=== PATIENT | female | born 2000 | race African-American/Black ===

== ENCOUNTER 2020-04-05 19:57 | Inpatient (IN) | payer OTHER, SELFPAY ==
[2020-04-05] VITALS (13 sets, daily range): BP systolic 115–149; BP diastolic 77–102; PULSE 83–113; TEMP 36.7; BMI 41.3
[2020-04-05 20:32] LABS: Basophils Percent Auto 0.2 % (0.2-1.2); Eosinophils Absolute Auto 0.1 K/mm3 (0-0.3); Eosinophils Percent Auto 0.6 % (0-4.4); Hematocrit 31.5 % (37.0-47.0); Hemoglobin 9.8 g/dL (12.0-15.0); Immature Granulocyte Absolute 0.14 K/mm3 (0.00-0.031); Immature Granulocyte Percent A 0.9 % (0-0.5); Lymphocytes Absolute Auto 2.32 K/mm3 (0.9-3.2); Lymphocytes Percent Auto 14.9 % (18.3-44.2); Mean Corpuscular HGB Conc 31.1 g/dl (32-36); Mean Corpuscular Hemoglobin 20.8 pg (26-34); Mean Corpuscular Volume 66.9 fl (80-100); Mean Platelet Volume 9.9 fl (7.4-10.4); Monocytes Absolute Auto 1.5 K/mm3 (0.1-0.6); Monocytes Percent Auto 9.7 % (2.6-8.5); Neutrophils Absolute Auto 11.4 K/mm3 (1.3-6.7); Neutrophils Percent Auto 73.7 % (45.5-73.1); Platelet Count Result 347 k/mm3 (150-375); Red Blood Count 4.71 M/mm3 (4.2-5.4); Red Cell Distribution Width 17.4 % (11.5-14.5); White Blood Count 15.5 K/mm3 (4.5-10.0)
[2020-04-05] MEDS: LACTATED RINGERS 1,000 ML 125 ML IV CONT (20:34)
[2020-04-05] MEDS: AMPICILLIN 2 GM/NS 100 ML 2 GM/100 ML BAG IVPB (20:34)
[2020-04-05] MEDS: DINOPROSTONE 10 MG VAG INSERT VAGINAL (20:42)
--- NOTE | 2020-04-05 20:53 | LDADM ---
This patient, Penelope Escalante, was admitted to Labor/Delivery/Recovery 109 on 04/05/20 at 19:57. Plans for labor, pain management and were discussed with patient. Patient/family oriented to hospital policies and general routines including ID bracelet, bed and alarms, visiting hours, pain management, procedures, bathroom and other care routines, personal items, smoking policy, room service/diet and guest tray routines, security routines, and visiting hours. Patient/Family are encouraged to report perceived risks to care and to ask questions if they do not understand what they are told or what they should do. See OBIX for further documentation.
[2020-04-06] VITALS (241 sets, daily range): BP systolic 104–171; BP diastolic 52–150; PULSE 63–183; TEMP 36.3–37.6; O2SAT 98–100
[2020-04-06] MEDS: AMPICILLIN 1 GM/NS 50 ML 1 GM/50 ML BAG IVPB ×6 (00:23→21:23)
[2020-04-06] MEDS: OXYTOCIN 30 UNITS/NS 500 ML 30 UNITS/500 ML BAG 6 UNITS IV CONT (06:32)
[2020-04-06] MEDS: LACTATED RINGERS 1,000 ML 125 ML IV CONT ×3 (09:25→20:22)
--- NOTE | 2020-04-06 09:58 | P.PNAN_ITS ---
Anes - Eval Pre Procedure Procedure: labor epidural Date/Time: 04/06/20 09:58 Preop Diagnosis: labor pain Pre Op Diagnosis: Induction of Labor Patient Data Age: 19 Gender: F Height: 5 ft 4 in Weight: 109.1 kg Last Vital Signs Temp 37.1 C 04/06/20 06:02 Pulse 88 04/06/20 09:31 BP 152/94 H 04/06/20 09:31 Allergies Allergy/AdvReac Type Severity Reaction Status Date / Time No Known Allergies Allergy Verified 03/14/20 13:36 Home Medications Medication Instructions Recorded Confirmed Type ferrous sulfate 325 mg PO DAILY 03/14/20 04/05/20 History prenat.vits,michelle,drq-vbla-qqpxb 1 tablet PO DAILY 03/14/20 04/05/20 History [ #2] Laboratory Tests 04/05/20 04/05/20 04/05/20 20:27 20:27 20:27 WBC 15.5 K/mm3 H K/mm3 (4.5-10.0) RBC 4.71 M/mm3 M/mm3 (4.2-5.4) Hgb 9.8 g/dL L g/dL (12.0-15.0) Hct 31.5 % L % (37.0-47.0) MCV 66.9 fl L fl (80-100) MCH 20.8 pg L pg (26-34) MCHC 31.1 g/dl L g/dl (32-36) RDW 17.4 % H % (11.5-14.5) Plt Count 347 k/mm3 k/mm3 (150-375) MPV 9.9 fl fl (7.4-10.4) Immature Gran % (Auto) 0.9 % H % (0-0.5) Neut % (Auto) 73.7 % H % (45.5-73.1) Lymph % (Auto) 14.9 % L % (18.3-44.2) [place] % (Auto) 9.7 % H % (2.6-8.5) Eos % (Auto) 0.6 % % (0-4.4) Baso % (Auto) 0.2 % % (0.2-1.2) Lymph # (Auto) 2.32 K/mm3 K/mm3 (0.9-3.2) [place] # (Auto) 1.5 K/mm3 H K/mm3 (0.1-0.6) Eos # (Auto) 0.1 K/mm3 K/mm3 (0-0.3) Baso # (Auto) 0.0 K/mm3 K/mm3 (0.0-0.1) Abs Immat Gran (auto) 0.14 K/mm3 H K/mm3 (0.00-0.031) Absolute Neuts (auto) 11.4 K/mm3 H K/mm3 (1.3-6.7) Absolute Nucleated RBC 0.0 K/mm3 K/mm3 (0.0-0.012) Nucleated RBC % 0.0 % % (0.0-0.2) RPR Pending Blood Type O Positive Antibody Screen Positive Antibody Identification Pending Antigen Identification Pending LAINA, IgG Interpret Pending LAINA, Poly Interpret Pending LAINA, Complement Interp Pending Patient hx anesthesia problems: none Family hx anesthesia problems: none [facility] Family History Family History (Updated 03/14/20 @ 13:39 by Jessica López RN) Grandparent Hypertension Sibling Asthma Grandparent Asthma Social History Social History Smoking status: Former smoker Tobacco type: cigarettes Second hand tobacco smoke exposure: No Substance use: never Spiritual care concerns: No Exam Day of Procedure 04/06/20 09:58
[2020-04-06] MEDS: ONDANSETRON INJ 4 MG/2 ML VIAL IV PUSH (23:35)
[2020-04-07] VITALS (21 sets, daily range): BP systolic 115–157; BP diastolic 46–97; PULSE 74–184; RESP 18; TEMP 36.1–37.3; O2SAT 97–100
--- NOTE | 2020-04-07 00:45 | WPDHPUPDATE1 ---
History and Physical Update Update Date/Time: 04/07/20 00:45 History and Physical has been reviewed, including an updated exam of the patient. There are NO changes in the patient's condition. Risks, benefits, and alternatives have been discussed and questions answered. Patient agrees to proceed with procedure.
--- NOTE | 2020-04-07 00:45 | WPDOBADMIT ---
Obstetrics - Admit Note Admission Note: record reviewed. No pertinent additions to the history and/or any subsequent changes in the physical findings that are not consistent with the expected course of the were found. Additions to the history and/or subsequent changes in the physical findings follow. None.
--- NOTE | 2020-04-07 00:45 | PM.OBPRVD ---
OB - Delivery Note Procedure Route of delivery: Laceration Description: Perineal - 1st Degree Delivery repair: chromic Specimen: No Quantitative Blood Loss: 500 Anesthesia type: Epidural Disposition: floor Narrative: Patient prepped and draped in the usual manner for this procedure. Maternal expulsive efforts readily delivered vertex and the rest of the baby followed without difficulty. Cord clamped and cut the placenta delivered spontaneously. Cervix vagina vulva were inspected with a first-degree midline laceration noted. This was injected with left lidocaine and approximately using 2 0 chromic suture in a running interlocking manner. At this point the uterus was hemostatic well contracted and there was no lacerations or tears. Baby Weeks of gestation at delivery: 39 Infant gender: Female Weight (pounds): 6 Weight (ounces): 12 score one minute: 9 score five minutes: 9
[2020-04-07] MEDS: OXYTOCIN 30 UNITS/NS 500 ML 30 UNITS/500 ML BAG 125 UNITS IV CONT (01:12)
[2020-04-07] MEDS: IBUPROFEN 600 MG TABLET PO ×2 (01:53→14:20)
[2020-04-07] MEDS: WITCH HAZEL 40 PADS 1 PAD TOPICAL (02:02)
[2020-04-07] MEDS: BENZOCAINE 20% AER SPR (*SP) 56 GM CAN 1 SPRAY TOPICAL (02:02)
[2020-04-07 10:03] LABS: Rapid Plasma Reagin Reactive (NonReactive)
[2020-04-07] MEDS: MULTIVIT/MIN/PREN/FOL AC/IRON TABLET 1 TAB PO (14:20)
[2020-04-07] MEDS: DOCUSATE SODIUM 100 MG CAPSULE PO (14:21)
[2020-04-07] MEDS: POLYSACCHARIDE IRON COMPLEX 150 MG CAPSULE PO (14:21)
--- NOTE | 2020-04-07 17:58 | PC.NURSE ---
Patient viewed the discharge video Mother & Baby Care, The First Two Weeks . Patient was given the opportunity and encouraged to ask questions. Patient verbalized understanding of information shared and has been given the mother/baby guide for home reference.
[2020-04-07] MEDS: TETANUS,DIPHTHERIA,AC PERTUSSIS ADULT (0.5 ML) BOOSTRIX IM (19:29)
[2020-04-08 05:06] LABS: Hematocrit 28.4 % (37.0-47.0); Hemoglobin 8.7 g/dL (12.0-15.0)
--- NOTE | 2020-04-08 07:18 | P.DS_ITS ---
DS: Admitting Diagnosis Admitting Diagnosis Admitting Diagnosis: Induction of Labor OB - DS: Summary OB Procedures : None OB Procedures Intrapartum: Spontaneous Vag Delivery OB Procedures: : None Time Spent with Patient Time attestation: Total time spent providing and/or coordinating discharge services: DS: Data Data Completed and Pending Labs on day of discharge: Labs from last 24 hours 04/08/20 04/05/20 04/05/20 04:16 20:27 20:27 Hgb 8.7 L Hct 28.4 L RPR Reactive A T.pallidum Ab (FTA-ABS) Pending Discharge Plan Discharge Discharging Clinician: Gómez Crump Patient Disposition: Home, Self-Care Activity: as tolerated Diet: as tolerated Patient Instructions: Antibiotic Form Stand Alone Forms: General Discharge Information Follow-up/Referrals: Gómez Crump MD [Physician] - 3 Weeks Discharge Medications: New ibuprofen 600 mg Tablet 600 mg PO Q6H PRN (Reason: Cramping) Qty: 30 RF: 0 Continued ferrous sulfate 325 mg (65 mg iron) Tablet,Delayed Release (Dr/Ec) 325 mg PO DAILY RF: 0 #2 Tablet 1 tablet PO DAILY RF: 0 Date of admission: 04/05/20 19:57 Primary Care Provider: PHYSICIAN,TELEPHONE ENGINEER Admitting Provider: Gómez Crump Attending physician on admission: óGmez Crump Condition: Stable
[2020-04-08 07:50] VITALS: BP 143/79; PULSE 81; RESP 18; TEMP 36.2
--- NOTE | 2020-04-08 07:50 | WPDANLDPN2 ---
Anes-Prog Note L&D Date/Time: 04/08/20 07:50 Comfortable throughout: labor and delivery Neuraxial method: epidural Epidural/Spinal procedure site: clean & non-tender Neuro status: Neuro function grossly intact. Cardiovascular status: normal Respiratory status: normal Airway patency: baseline Mental status: baseline Post-Op hydration status: normal Vital Signs: Last Vital Signs Temp 36.4 C L 04/07/20 19:05 Pulse 85 04/07/20 19:05 Resp 18 04/07/20 19:05 BP 143/67 H 04/07/20 19:05 Pulse Ox 100 04/07/20 03:25 Pain score (VAS): 0 I/O: Intake & Output 04/07/20 04/07/20 04/08/20 15:59 23:59 07:59 Intake Total 240 Balance 240 Post-procedural complaints: none Patient feedback: Patient satisfied with anesthetic care.
[2020-04-08] MEDS: BENZOCAINE 20% AER SPR (*SP) 56 GM CAN 1 SPRAY TOPICAL (08:21)
[2020-04-08] MEDS: DOCUSATE SODIUM 100 MG CAPSULE PO (08:22)
[2020-04-08] MEDS: WITCH HAZEL 40 PADS 1 PAD TOPICAL (08:22)
[2020-04-08] MEDS: IBUPROFEN 600 MG TABLET PO (08:22)
[2020-04-08] MEDS: POLYSACCHARIDE IRON COMPLEX 150 MG CAPSULE PO (08:23)
[2020-04-08] MEDS: MULTIVIT/MIN/PREN/FOL AC/IRON TABLET 1 TAB PO (08:23)
[2020-04-08 08:27] VITALS: PULSE 85; RESP 18; O2SAT 100
[2020-04-09 13:24] VITALS: BP 140/90; PULSE 89; RESP 20; TEMP 36.8; O2SAT 100
[2020-04-09 17:01] LABS: Treponema pallidum Ab FTA ABS Nonreactive (Nonreactive)
== END 2020-04-08 13:30 | disposition home or self-care (01) | DRG 560 ==
LOC: ANHLDR 20:01 → ANHOB2 04-07 03:35
PROVIDERS: Admitting Provider Obstetrics & Gynecology; Visit Provider Obstetrics & Gynecology
DX: O99.824 Streptococcus B carrier state complicating childbirth (principal); O70.0 First degree perineal laceration during delivery; Z3A.39 39 weeks gestation of pregnancy; Z37.0 Single live birth; Z23 Encounter for immunization
CPT/HCPCS: 36415; 81479; 85014; 85018; 85025; 86592; 86780; 86850; 86860; 86870; 86880; 86900; 86901; 86902; 86978; 90471; 90653; 90715; A9270; G0008; J0290; J2405; J2590; J2795; J7120